=== PATIENT | male | born 1970 | race Caucasian/White ===

== ENCOUNTER 2020-07-24 12:59 | Outpatient (REF) | payer OTHER, SELFPAY | END 2020-07-24 13:00 | disposition home or self-care (01) | LOC: HO.SCI 12:59 | PROVIDERS: Visit Provider Nurse Practitioner Women's Health | DX: Z13.89 Encounter for screening for other disorder (principal) ==

== ENCOUNTER 2020-07-25 18:44 | Outpatient (REF) | payer OTHER, SELFPAY ==
--- NOTE | ~2020-07-25 | MR_ITS ---
EXAMINATION: MR HIP WITHOUT CONTRAST, RIGHT CLINICAL INFORMATION: Right hip pain. Evaluate labral tear. COMPARISON: None TECHNIQUE: MRI of the right hip was obtained using routine sequences on a high-field strength magnet. FINDINGS: BONE/JOINTS: No evidence of fracture, avascular necrosis or stress reaction. 1.7 cm low T1/T2 signal focus in the femoral neck, likely a sclerotic focus, perhaps bone island. Mild cartilage heterogeneity in the superolateral joint space, minimal subchondral cyst/edema, suggesting minimal hip joint arthritis. No significant joint effusion. Osseous prominence at the anterior femoral head and neck junction. Alpha angle measures 60 degrees. These findings would predispose to femoroacetabular impingement. No edema marginating the visualized right SI joint. LABRUM: Intermediate signal in the anterosuperior labrum suggesting degeneration. Focal linear signal at the base of the labrum. There is a focal T1 bright focus anterosuperiorly, which may reflect a small ossicle/ossification, correlate with x-ray. Remainder of the labrum appears intact. On the coronal T2 sequence of the pelvis, there are degenerative changes in the lower lumbar spine. MUSCLES/TENDONS: Gluteus minimus is intact. Minimal distal tendinosis of the distal posterior fibers of the gluteus medius. Rectus femoris, iliopsoas, common hamstring tendons are intact. No greater trochanteric or iliopsoas bursitis. No muscle tear. MISCELLANEOUS: No inguinal adenopathy. MR/MR hip RT wo con IMPRESSION: 1. Minimal right hip arthritis. No evidence of acute osseous abnormality. Question small ossification/ossicle adjacent to the anterosuperior acetabulum, correlate with x-ray. 2. Osseous prominence at the anterior femoral head and neck junction. Alpha angle measures 60 degrees. These findings would predispose to femoroacetabular impingement. 3. Anterosuperior labral degeneration. Questionable focal tear, but this is not definitive. 4. Minimal distal gluteus medius tendinosis.
== END 2020-07-25 18:45 | disposition home or self-care (01) ==
LOC: HO.MRI 18:44
PROVIDERS: PCP Internal Medicine; Visit Provider Nurse Practitioner Women's Health
DX: M25.551 Pain in right hip (principal)
CPT/HCPCS: 73721

== ENCOUNTER 2020-10-09 17:55 | Outpatient (REF) | payer OTHER, SELFPAY ==
--- NOTE | ~2020-10-09 | MR_ITS ---
EXAMINATION: MR LUMBAR SPINE WITHOUT CONTRAST CLINICAL INFORMATION: Lower back pain. Right-sided groin pain. COMPARISON: None. TECHNIQUE: MRI of the lumbar spine was obtained using routine sequences without contrast. FINDINGS: VERTEBRAL BODIES AND PARASPINAL STRUCTURES: Normal vertebral body alignment. The lumbar lordosis is maintained. No acute fracture or subluxation. No loss of vertebral body height. Loss of intervertebral disc height with disc desiccation at L4-L5 and L5-S1. Modic type II degenerative endplate changes and Schmorl's nodes at these levels. No additional abnormal marrow signal to suggest acute osseous injury. Simple bilateral renal cysts. Findings are not clinically significant and no follow-up imaging is recommended. Otherwise, the visualized paraspinal soft tissues are unremarkable. CONUS MEDULLARIS AND CAUDA EQUINA: Normal, terminating at the level of L1. SPINAL LEVELS: T12-L1: No significant disc bulge. No central canal or neural foraminal stenosis. L1-L2: No significant disc bulge. No central canal or neural foraminal stenosis. L2-L3: No significant disc bulge. Bilateral facet arthropathy without central canal or neural foraminal stenosis. Small right perineural cyst. L3-L4: Shallow left subarticular disc protrusion which abuts the exiting left L3 nerve root. Bilateral facet arthropathy with mild bilateral neural foraminal stenosis. L4-L5: Shallow broad-based disc bulge and faint posterior annular fissure with bilateral facet arthropathy which encroaches upon the traversing bilateral L5 nerve roots within the lateral recesses and causes [id number] bilateral neural foraminal stenosis. L5-S1: Broad-based disc bulge with a left subarticular/extraforaminal disc protrusion which contacts the exiting left L5 nerve root. Bilateral facet arthropathy with [id number] bilateral neural foraminal stenosis. MR/MR lumbar spine wo con IMPRESSION: 1. Shallow broad-based disc bulge at L4-L5 with annular fissuring and bilateral facet arthropathy which encroaches upon the traversing bilateral L5 nerve roots as well as causes [id number] bilateral neural foraminal stenosis. 2. Broad-based disc bulge at L5-S1 with a left subarticular/extraforaminal disc adrenal which contacts the exiting left L5 nerve root. Bilateral facet arthropathy with [id number] bilateral neural foraminal stenosis. 3. Shallow left subarticular disc protrusion at L3-L4 which abuts the exiting left L3 nerve root. Bilateral facet arthropathy with mild bilateral neural foraminal stenosis.
== END 2020-10-09 17:56 | disposition home or self-care (01) ==
LOC: HO.MRI 17:55
PROVIDERS: PCP Internal Medicine; Visit Provider Nurse Practitioner Women's Health
DX: M54.16 Radiculopathy, lumbar region (principal)
CPT/HCPCS: 72148